=== PATIENT | female | born 1965 | race Caucasian/White ===

== ENCOUNTER 2017-11-01 10:32 | Emergency (ER) | payer SELFPAY ==
[2017-11-01] MEDS ORDERED: DUTOPROL 12.5 M1 TE2 PO (10:42)
[2017-11-01] MEDS ORDERED: GLUCOPHAGE PO (10:43)
[2017-11-01] MEDS ORDERED: CLOPIDOGREL PO (10:43)
[2017-11-01] MEDS ORDERED: SIMVASTATIN40 M1 PO (10:49)
[2017-11-01] MEDS ORDERED: METOPROLOL TAR100 M1 PO (10:49)
[2017-11-01] MEDS ORDERED: ASPIRIN E.C. 8181 MG PO (10:50)
[2017-11-01] MEDS ORDERED: DESYREL 100MG100 MG PO (10:50)
[2017-11-01] MEDS ORDERED: NITROSTAT0.4 M1 SL (10:50)
[2017-11-01] MEDS ORDERED: OMEPRAZOLE D/R20 MG PO (10:51)
[2017-11-01] MEDS ORDERED: NORVASC 10MG10 MG PO (10:51)
[2017-11-01 11:16] LABS: EOS # 0.3 (0.04-0.40); EOS % 1.9 % (1.0-5.0); HEMATOCRIT 46.7 % (37.0-47.0); HEMOGLOBIN 15.1 g/dL (12.5-16.0); LYMPH# 1.9 (1.50-4.00); MEAN CELL VOLUME 88 fl (78-100); MEAN CORPUSCULAR HEMOGLOBIN 29 pg (27-31); MEAN CORPUSCULAR HGB CONC 32 g/dL (33-37); MEAN PLATELET VOLUME 9.4 fl (7.4-10.4); MONO # 0.9 (0.20-0.80); PLATELET COUNT 238 K/mm3 (130-400); RED BLOOD COUNT 5.29 M/mm3 (4.10-5.30); RED CELL DISTRIBUTION WIDTH 14.2 % (11.5-14.5); WHITE BLOOD COUNT 13.1 K/mm3 (4.8-10.8)
[2017-11-01 11:25] LABS: NEU # 10.1 (1.40-6.50)
[2017-11-01 11:29] LABS: BUN/CREATININE RATIO 18.8 (6.0-26.0); CALCIUM 9.8 mg/dL (8.4-10.2); POTASSIUM 4.7 mmol/L (3.6-5.0); TOTAL BILIRUBIN 0.7 mg/dL (0.2-1.3); TOTAL PROTEIN 7.5 g/dL (6.3-8.2)
[2017-11-01] MEDS ORDERED: SYMBICORT1 AE3 IH (12:00)
[2017-11-01 12:17] LABS: ERYTHROCYTE SEDIMENTATION RATE 8 mm/hr (0-30)
[2017-11-01] MEDS ORDERED: DECADRON 4MG TAB4 MG PO (12:59)
[2017-11-01] MEDS ORDERED: NORCO 325 MG-51 TA1 PO (12:59)
[2017-11-01 13:12] VITALS: BP 139/80
== END 2017-11-01 13:19 | disposition home or self-care (01) ==
LOC: ED 10:32
PROVIDERS: Family Medicine
DX: M10.071 Idiopathic gout, right ankle and foot (principal); I10 Essential (primary) hypertension; E11.9 Type 2 diabetes mellitus without complications; J44.9 Chronic obstructive pulmonary disease, unspecified; N28.9 Disorder of kidney and ureter, unspecified; Z90.5 Acquired absence of kidney; I25.10 Atherosclerotic heart disease of native coronary artery without angina pectoris; Z95.5 Presence of coronary angioplasty implant and graft; F17.200 Nicotine dependence, unspecified, uncomplicated; Z79.02 Long term (current) use of antithrombotics/antiplatelets; Z79.82 Long term (current) use of aspirin; Z79.84 Long term (current) use of oral hypoglycemic drugs

== ENCOUNTER 2017-12-24 17:28 | Emergency (ER) | payer MEDICARE ==
[~2017-12-24] VITALS: Wt 98.0 kg
[~2017-12-24 17:28] MED LIST: ASPIRIN E.C. 8181 MG PO; CLOPIDOGREL PO; DECADRON 4MG TAB4 MG PO; DESYREL 100MG100 MG PO; DUTOPROL 12.5 M1 TE2 PO; GLUCOPHAGE PO; METOPROLOL TAR100 M1 PO; NITROSTAT0.4 M1 SL; NORCO 325 MG-51 TA1 PO; NORVASC 10MG10 MG PO; OMEPRAZOLE D/R20 MG PO; SIMVASTATIN40 M1 PO; SYMBICORT1 AE3 IH
[2017-12-24 17:50] LABS: EOS # 0.2 (0.04-0.40); EOS % 2.3 % (1.0-5.0); HEMATOCRIT 43.2 % (37.0-47.0); HEMOGLOBIN 14.3 g/dL (12.5-16.0); LYMPH# 2.1 (1.50-4.00); MEAN CELL VOLUME 89 fl (78-100); MEAN CORPUSCULAR HEMOGLOBIN 29 pg (27-31); MEAN CORPUSCULAR HGB CONC 33 g/dL (33-37); MEAN PLATELET VOLUME 9.4 fl (7.4-10.4); MONO # 0.8 (0.20-0.80); NEU # 5.7 (1.40-6.50); PLATELET COUNT 231 K/mm3 (130-400); RED BLOOD COUNT 4.86 M/mm3 (4.10-5.30); RED CELL DISTRIBUTION WIDTH 14.3 % (11.5-14.5); WHITE BLOOD COUNT 8.9 K/mm3 (4.8-10.8)
[2017-12-24 18:09] LABS: TROPONIN-I < 0.03 ng/mL (0.00-0.06)
[2017-12-24 18:15] LABS: CALCIUM 9.9 mg/dL (8.4-10.2); POTASSIUM 4.1 mmol/L (3.6-5.0); TOTAL BILIRUBIN 0.5 mg/dL (0.2-1.3); TOTAL PROTEIN 7.1 g/dL (6.3-8.2)
[2017-12-24 18:24] LABS: CKMB ISOENZYME 2.2 ng/mL (0.6-3.5)
[2017-12-24 20:44] VITALS: BP 169/94
[2017-12-25] MEDS ORDERED: RT ALBUTEROL CC18 GM IH (00:17)
[2017-12-25] MEDS ORDERED: CLOPIDOGREL PO (00:18)
[2017-12-25] MEDS ORDERED: MELATONIN5 M3 PO (00:19)
== END 2017-12-24 20:44 | disposition short-term general hospital (02) ==
LOC: ED 17:28
PROVIDERS: Nurse Practitioner Family
DX: I20.9 Angina pectoris, unspecified (principal); R00.1 Bradycardia, unspecified; R01.1 Cardiac murmur, unspecified; E11.9 Type 2 diabetes mellitus without complications; I25.2 Old myocardial infarction; Z79.84 Long term (current) use of oral hypoglycemic drugs; Z79.899 Other long term (current) drug therapy; Z79.02 Long term (current) use of antithrombotics/antiplatelets; Z95.5 Presence of coronary angioplasty implant and graft; Z86.73 Personal history of transient ischemic attack (TIA), and cerebral infarction without residual deficits; Z79.82 Long term (current) use of aspirin; Z87.891 Personal history of nicotine dependence; Z82.49 Family history of ischemic heart disease and other diseases of the circulatory system
CPT/HCPCS: J7030

== ENCOUNTER 2018-01-04 16:33 | Outpatient (RCR) | payer MEDICARE ==
[~2018-01-04 16:33] MED LIST changes: +MELATONIN5 M3 PO; +RT ALBUTEROL CC18 GM IH
== END 2018-03-25 08:37 | disposition home or self-care (01) ==
LOC: CARDREHAB 16:33
DX: Z48.812 Encounter for surgical aftercare following surgery on the circulatory system (principal); Z95.5 Presence of coronary angioplasty implant and graft